=== PATIENT | male | born 1980 | race Caucasian/White ===

== ENCOUNTER 2023-04-11 19:29 | Inpatient (IN) | payer SELFPAY ==
[~2023-04-11] VITALS: Ht 172.7 cm; Wt 58.0 kg
[2023-04-11] VITALS (11 sets, daily range): BP systolic 146–174; BP diastolic 68–84
[2023-04-11] MEDS ORDERED: LORazepam 2 MG TAB PO PRN (20:05)
[2023-04-11] MEDS ORDERED: niCARdipine 40MG IN 200ML NACL IV BAG As Ordered ONE (20:47)
[2023-04-11 21:24] LABS: HEMATOCRIT 42.9 % (42.0-52.0); HEMOGLOBIN 15.5 g/dl (13.5-17.5); MEAN CORPUSCULAR HEMOGLOBIN 32.4 pg (27.0-33.0); MEAN CORPUSCULAR HGB CONC 36.1 g/dl (32.0-36.5); MEAN CORPUSCULAR VOLUME 89.7 fl (80.0-96.0); PLATELET COUNT, AUTOMATED 287 10^3/uL (150-450); RED BLOOD COUNT 4.78 10^6/uL (4.30-6.10); WHITE BLOOD COUNT 11.9 10^3/uL (4.0-10.0)
[2023-04-11] MEDS ORDERED: DOCU100C16 PO (21:25)
[2023-04-11] MEDS ORDERED: HEMO0.1O PR (21:25)
[2023-04-11] MEDS ORDERED: HOME MED LIST COMPLETE! XX SCH (21:25)
[2023-04-11] MEDS: THIAMINE 100 MG TAB PO SCH (21:33)
[2023-04-11] MEDS: niCARdipine IV 40 MG in IV 1 EA IV SCH (21:33)
[2023-04-11 21:39] LABS: BLOOD UREA NITROGEN 9 MG/DL (9-23); CALCIUM LEVEL 9.5 MG/DL (8.5-10.1); CARBON DIOXIDE LEVEL 25 MMOL/L (20-31); CHLORIDE LEVEL 98 MMOL/L (98-107); CREATININE FOR GFR 0.74 MG/DL (0.70-1.30); GLOMERULAR FILTRATION RATE > 60.0 (>60); GLUCOSE, FASTING 95 MG/DL (60-100); POTASSIUM SERUM 3.8 MMOL/L (3.5-5.1); SODIUM LEVEL 133 MMOL/L (136-145)
[2023-04-12] VITALS (34 sets, daily range): BP systolic 136–192; BP diastolic 67–104
[2023-04-12] MEDS ORDERED: ACETAMINOPHEN TAB 650MG DOSE (2X325MG) PO ONE (01:00)
[2023-04-12] MEDS: niCARdipine IV 40 MG in IV 1 EA IV SCH (04:05)
[2023-04-12 05:40] LABS: HEMATOCRIT 41.3 % (42.0-52.0); HEMOGLOBIN 14.9 g/dl (13.5-17.5); MEAN CORPUSCULAR HEMOGLOBIN 32.5 pg (27.0-33.0); MEAN CORPUSCULAR HGB CONC 36.1 g/dl (32.0-36.5); MEAN CORPUSCULAR VOLUME 90.2 fl (80.0-96.0); PLATELET COUNT, AUTOMATED 255 10^3/uL (150-450); RED BLOOD COUNT 4.58 10^6/uL (4.30-6.10); WHITE BLOOD COUNT 8.2 10^3/uL (4.0-10.0)
[2023-04-12 05:57] LABS: ALBUMIN 4.3 G/DL (3.2-5.2); ALKALINE PHOSPHATASE 54 U/L (46-116); ALT/SGPT 35 U/L (7.0-40); AST/SGOT 43 U/L (<34); BILIRUBIN,TOTAL 1.8 MG/DL (0.3-1.2); BLOOD UREA NITROGEN 7 MG/DL (9-23); CARBON DIOXIDE LEVEL 26 MMOL/L (20-31); CHLORIDE LEVEL 98 MMOL/L (98-107); CREATININE FOR GFR 0.69 MG/DL (0.70-1.30); GLOMERULAR FILTRATION RATE > 60.0 (>60); GLUCOSE, FASTING 88 MG/DL (60-100); MAGNESIUM LEVEL 2.1 MG/DL (1.8-2.4); POTASSIUM SERUM 3.9 MMOL/L (3.5-5.1); SODIUM LEVEL 132 MMOL/L (136-145); TOTAL PROTEIN 6.6 G/DL (5.7-8.2)
[2023-04-12] MEDS: HEPARIN SOD (PORCINE) 5000UNITS/ML 1ML VIAL/SYRINGE SC SCH ×2 (06:28→13:54)
[2023-04-12] MEDS ORDERED: PILL CUTTER 1 EACH XX PRN (07:30)
[2023-04-12] MEDS: THIAMINE 100 MG TAB PO SCH (07:40)
[2023-04-12] MEDS ORDERED: LOSARTAN 25 MG TAB PO SCH (08:00)
[2023-04-12] MEDS ORDERED: NIFEdipine 30MG XL TAB PO SCH (08:00)
[2023-04-12] MEDS ORDERED: FOLIC ACID 1MG TAB PO SCH (09:00)
[2023-04-12] MEDS ORDERED: MULTIVITAMINS/MINERALS THERAP 1 TAB PO SCH (09:00)
[2023-04-12] MEDS ORDERED: NICOTINE 21MG/24HR 1 EA TRANSDERMAL TD SCH (09:00)
[2023-04-12 09:30] LABS: CK-MB VALUE MASS 2.3 NG/ML (<3.6)
[2023-04-12 09:33] LABS: MB/CK RELATIVE INDEX 1.02 (< OR =4)
[2023-04-12 10:06] LABS: CK-MB VALUE MASS 1.6 NG/ML (<3.6)
[2023-04-12 10:12] LABS: MB/CK RELATIVE INDEX 0.72 (< OR =4)
[2023-04-12] MEDS ORDERED: ISOVUE-370 76% 100ML VIAL As Ordered ONE (10:33)
[2023-04-12] MEDS ORDERED: PREPARATION H SUPP (HEMORRHOID) PR SCH (11:00)
[2023-04-12] MEDS: **hydrALAZINE** 50 MG TAB PO SCH ×2 (12:25→15:23)
[2023-04-12] MEDS ORDERED: LOSARTAN 25 MG TAB PO ONE (14:00)
[2023-04-12] MEDS ORDERED: COZA1TAB PO ×2 (14:47→16:06)
[2023-04-12] MEDS ORDERED: HYDR-3910 PO (14:47)
[2023-04-12] MEDS ORDERED: HYDR-3911 PO ×2 (16:01→16:06)
[2023-04-13] MEDS ORDERED: LOSARTAN 25 MG TAB PO SCH (09:00)
== END 2023-04-12 16:24 | disposition home or self-care (01) | DRG 199 ==
LOC: M ICU 20:43
PROVIDERS: ADMIT Internal Medicine Pulmonary Disease; ATTEND Internal Medicine
DX: I16.9 Hypertensive crisis, unspecified (principal); F10.10 Alcohol abuse, uncomplicated; F17.200 Nicotine dependence, unspecified, uncomplicated; Z79.899 Other long term (current) drug therapy; K64.9 Unspecified hemorrhoids